=== PATIENT | male | born 1945 | race Caucasian/White ===

== ENCOUNTER 2023-04-25 15:22 | Inpatient (IN) | payer MEDICARE ==
[~2023-04-25] VITALS: Ht 175.3 cm; Wt 69.6 kg
[2023-04-25 15:22] VITALS: BP_SYST 123; PULSE 75; RESP 18; TEMP 97.2; O2SAT 98
[2023-04-25 16:10] LABS: BASOPHILS % (AUTO) 0.3 % (0.0-2.0); EOSINOPHILS # (AUTO) 0.1 K/uL (0.0-0.4); EOSINOPHILS % (AUTO) 0.9 % (0.0-4.0); HEMATOCRIT 23.7 % (36-54); HEMOGLOBIN 8.3 g/dL (14.0-18.0); LYMPHOCYTES # (AUTO) 0.6 K/uL (1.0-5.5); LYMPHOCYTES % (AUTO) 7.2 % (20.5-51.5); MEAN CORPUSCULAR HEMOGLOBIN 31 pg (27-31); MEAN CORPUSCULAR HGB CONC 35 % (32-36); MEAN CORPUSCULAR VOLUME 90 fL (79.0-98.0); MONOCYTES # (AUTO) 0.4 K/uL (0.0-1.0); MONOCYTES % (AUTO) 5.2 % (1.7-9.3); NEUTROPHILS % (AUTO) 86.4 % (40.0-70.0); PLATELET COUNT (AUTO) 231 K/uL (130-430); RED BLOOD CELL COUNT(AUTO) 2.64 MIL/uL (4.2-6.2); RED CELL DISTRIBUTION WIDTH 14.1 % (9.0-15.0); WHITE BLOOD COUNT (AUTO) 8.1 K/uL (4.8-10.8)
[2023-04-25 16:35] LABS: ALANINE AMINOTRANSFERASE 19 U/L (12-78); ANION GAP 5 (5-15); CALCIUM 8.4 mg/dL (8.4-11.0); CARBON DIOXIDE 22 mmol/L (23-29); CHLORIDE 86 mmol/L (98-107); GLUCOSE 219 mg/dL (74-106); POTASSIUM 4.3 mmol/L (3.5-5.1); TOTAL BILIRUBIN 0.2 mg/dL (0.0-1.0); TOTAL PROTEIN, SERUM 6.5 g/dL (6.4-8.3); UREA NITROGEN, BLOOD 21 mg/dL (8-21)
[2023-04-25 16:42] LABS: SODIUM SERUM 113 mmol/L (136-145)
[2023-04-25] MEDS ORDERED: NACL 0.9% 2,000 ML IV ONE (16:45)
[2023-04-25 16:51] LABS: PROTHROMBIN TIME 10.3 SECS (9.5-12.5)
[2023-04-25 16:56] LABS: ASPARTATE AMINOTRANSFERASE 24 U/L (10-37)
[2023-04-25] MEDS ORDERED: SODIUM CHLORIDE 3% *HI-ALERT* 500 ML IV ONE (17:00)
[2023-04-25 19:32] LABS: BILIRUBIN,URINE NEGATIVE (NEGATIVE); CLARITY/URINE SL CLOUDY (CLEAR); COLOR,URINE YELLOW (YELLOW); GLUCOSE,URINE NEGATIVE (NEGATIVE); KETONES,URINE NEGATIVE (NEGATIVE); LEUKOCYTE ESTERASE ,URINE 3+ (NEGATIVE); NITRITE, URINE NEGATIVE (NEGATIVE); PROTEIN URINE TRACE (NEGATIVE); UROBILINOGEN,URINE 0.2 (0.2-1.0)
[2023-04-25 19:39] LABS: BLOOD, URINE TRACE (NEGATIVE)
[2023-04-25 19:44] LABS: BACTERIA,URINE MANY /HPF (None Seen); WBC,URINE >100 /HPF (0-3)
[2023-04-25 19:45] LABS: MUCUS,URINE None Seen /LPF (None Seen)
[2023-04-25] MEDS ORDERED: cefTRIAXone 1 GM in D5W 50 ML IV ONE (20:15)
[2023-04-25] MEDS ORDERED: cefTRIAXone 1 GM VIAL ONE (20:20)
[2023-04-25] MEDS ORDERED: LORazepam 2 MG/ML VIAL IVP PRN (21:15)
[2023-04-25] MEDS ORDERED: INSULIN LISPRO SLIDING SCALE 100 UNITS/ML, 3 ML VIAL (humaLOG) SUBCUT PRN (21:15)
[2023-04-25] MEDS ORDERED: MAGNESIUM SULFATE 50 ML IV PRN (21:15)
[2023-04-25] MEDS ORDERED: POTASSIUM CHLORIDE 20 MEQ TAB.PRT.SR PO PRN (21:15)
[2023-04-25] MEDS ORDERED: MORPHINE 2 MG/ML INJ. SYRINGE IVP PRN ×2 (21:15)
[2023-04-25] MEDS ORDERED: ONDANSETRON HCL 4 MG/2 ML VIAL IVP PRN (21:15)
[2023-04-25] MEDS ORDERED: DOCUSATE SODIUM 100 MG CAPSULE PO PRN (21:15)
[2023-04-25] MEDS ORDERED: ZOLPIDEM TARTRATE 5 MG TABLET PO PRN (21:15)
[2023-04-25] MEDS ORDERED: ACETAMINOPHEN 325 MG TABLET PO PRN ×2 (21:15→21:30)
[2023-04-25] MEDS ORDERED: NALOXONE HCL 0.4 MG/ML AMP (NARCAN) IVP PRN ×2 (21:15)
[2023-04-25] MEDS ORDERED: MUPIROCIN 2% TOPICAL OINTMENT 22 GM NS PRN (21:15)
[2023-04-25] MEDS ORDERED: DEXTROSE 50% JECT 50 ML DISP.SYRIN IVP PRN (21:15)
[2023-04-25 21:46] LABS: ANION GAP 5 (5-15); CARBON DIOXIDE 23 mmol/L (23-29); CHLORIDE 96 mmol/L (98-107); CREATININE 0.67 mg/dL (0.55-1.30); GLUCOSE 60 mg/dL (74-106); POTASSIUM 4.1 mmol/L (3.5-5.1); SODIUM SERUM 124 mmol/L (136-145); UREA NITROGEN, BLOOD 18 mg/dL (8-21)
[2023-04-25] MEDS: NACL 0.9% 1,000 ML IV SCH (22:23)
[2023-04-25 23:10] VITALS: BP_SYST 125; PULSE 85; RESP 18; TEMP 97.6
[2023-04-26 06:56] LABS: BASOPHILS % (AUTO) 0.5 % (0.0-2.0); EOSINOPHILS # (AUTO) 0.1 K/uL (0.0-0.4); EOSINOPHILS % (AUTO) 1.6 % (0.0-4.0); HEMATOCRIT 25.3 % (36-54); HEMOGLOBIN 8.8 g/dL (14.0-18.0); LYMPHOCYTES # (AUTO) 0.8 K/uL (1.0-5.5); LYMPHOCYTES % (AUTO) 13.2 % (20.5-51.5); MEAN CORPUSCULAR HEMOGLOBIN 31 pg (27-31); MEAN CORPUSCULAR HGB CONC 35 % (32-36); MEAN CORPUSCULAR VOLUME 90 fL (79.0-98.0); MONOCYTES # (AUTO) 0.5 K/uL (0.0-1.0); MONOCYTES % (AUTO) 8.2 % (1.7-9.3); NEUTROPHILS # (AUTO) 4.8 K/uL (1.8-7.7); NEUTROPHILS % (AUTO) 76.5 % (40.0-70.0); PLATELET COUNT (AUTO) 234 K/uL (130-430); RED CELL DISTRIBUTION WIDTH 13.8 % (9.0-15.0); WHITE BLOOD COUNT (AUTO) 6.3 K/uL (4.8-10.8)
[2023-04-26 07:05] VITALS: BP_SYST 147; PULSE 75; RESP 16; TEMP 98.3; O2SAT 97; O2SAT 98
[2023-04-26 07:24] LABS: ANION GAP 7 (5-15); CALCIUM 8.2 mg/dL (8.4-11.0); CARBON DIOXIDE 22 mmol/L (23-29); CHLORIDE 99 mmol/L (98-107); CREATININE 0.68 mg/dL (0.55-1.30); GLUCOSE 116 mg/dL (74-106); POTASSIUM 4.7 mmol/L (3.5-5.1); SODIUM SERUM 128 mmol/L (136-145); UREA NITROGEN, BLOOD 18 mg/dL (8-21)
[2023-04-26] MEDS ORDERED: HEPARIN SODIUM,PORCINE 5,000 UNITS/ML VIAL SUBCUT SCH (09:00)
[2023-04-26] MEDS: NACL 0.9% 1,000 ML IV SCH (11:48)
[2023-04-26 12:00] VITALS: BP_SYST 152; PULSE 67; RESP 16; TEMP 98.6; O2SAT 99
[2023-04-26] MEDS ORDERED: ASPIRIN 81 MG TAB.CHEW PO ONE (16:00)
[2023-04-26] MEDS ORDERED: MENTHOL/ZINC OXIDE 113 GM OINT. TP PRN (16:15)
[2023-04-26 19:48] VITALS: BP_SYST 138; PULSE 63; RESP 16; TEMP 98.4; O2SAT 99
[2023-04-26] MEDS ORDERED: cefTRIAXone 1 GM in D5W 50 ML IV SCH (21:00)
[2023-04-27] MEDS ORDERED: ASPIRIN 81 MG TAB.CHEW PO SCH (09:00)
== END 2023-04-26 20:35 | disposition short-term general hospital (02) | DRG 640 ==
LOC: EDBD 15:22 → SED 15:22 → STU 20:40
PROVIDERS: ADMIT General Practice; ATTEND General Practice
DX: E87.1 Hypo-osmolality and hyponatremia (principal); G93.41 Metabolic encephalopathy; N39.0 Urinary tract infection, site not specified; G82.20 Paraplegia, unspecified; Z20.822 Contact with and (suspected) exposure to COVID-19; D63.8 Anemia in other chronic diseases classified elsewhere; N40.0 Benign prostatic hyperplasia without lower urinary tract symptoms; Z86.73 Personal history of transient ischemic attack (TIA), and cerebral infarction without residual deficits; Z87.440 Personal history of urinary (tract) infections
CPT/HCPCS: 36415; 71045; 80048; 80053; 81000; 82962; 83037; 83605; 83735; 84484; 85025; 85610-TC; 85730-TC; 87040; 87086; 93005; 96365; 99291; G0378; J0696; J1644; J3490; J7060